=== PATIENT | male | born 1935 | race Two or more races ===

== ENCOUNTER → 2020-04-26 | Outpatient (CLI) | payer MEDICARE ==
[~2020-04-26] MED LIST: FINA5TAB4 PO; HYDR25TA6 PO; LISI-167 PO; LOVA10TA PO; SLEEP AID PO; TAMS0.4C2 PO
== END | disposition home or self-care (01) ==
LOC: CVU 07:30
PROVIDERS: ATTEND Family Medicine
DX: I73.9 Peripheral vascular disease, unspecified (principal); I10 Essential (primary) hypertension
CPT/HCPCS: 93922

== ENCOUNTER → 2020-09-10 | Outpatient (CLI) | payer MEDICARE | END | disposition home or self-care (01) | LOC: CFH 11:18 | PROVIDERS: ATTEND Family Medicine | DX: M51.36 Other intervertebral disc degeneration, lumbar region (principal); I70.0 Atherosclerosis of aorta; M25.862 Other specified joint disorders, left knee | CPT/HCPCS: 72100 ==

== ENCOUNTER → 2020-10-23 | Outpatient (CLI) | payer MEDICARE | END | disposition home or self-care (01) | LOC: CVU 07:33 | PROVIDERS: ATTEND Family Medicine | DX: I70.202 Unspecified atherosclerosis of native arteries of extremities, left leg (principal); I77.1 Stricture of artery | CPT/HCPCS: 93922; 93925 ==

== ENCOUNTER 2021-05-08 17:40 | Emergency (ER) | payer MEDICARE ==
[~2021-05-08] VITALS: Ht 160 cm; Wt 56.5 kg
--- NOTE | 2021-05-08 18:46 | NUR ---
PT SENT BY FOR ABNORMAL EKG. PT WENT TO CARE N/V/D AND HICCUPTS THAT STARTED LAST NIGHT. PT DENIES CP, ABD PAIN. PT CONNECTED TO ALL MONITORING. SON AND DAUGHTER AT BEDSIDE SUPERVISOR STENO POOL PT IN CROATIAN SPEAKING. PIV PLACED BY TASK RN, LABS DRAWN. AWAITING ORDERS.
--- NOTE | 2021-05-08 19:05 | NUR ---
REPORT GIVEN TO INOCENTE WINTERS. TRANSFER OF CARE AT THIS TIME.
[2021-05-08] MEDS ORDERED: MAALOX/HYOSCYAMINE/LIDOCAINE 45 ML BTL ONE (19:21)
[2021-05-08] MEDS ORDERED: ONDANSETRON 2MG/ML, 2ML ONE (19:21)
[2021-05-08 19:22] LABS: BASOPHILS % (AUTO) 0 % (0-1); EOSINOPHILS % (AUTO) 0 % (1-7); LYMPHOCYTES % (AUTO) 5 % (22-44); MEAN CORPUSCULAR HGB CONC 33.2 g/dL (33.2-36.2); MEAN PLATELET VOLUME 10.3 fL (7.4-10.4); MONOCYTES % (AUTO) 6 % (2-9); NEUTROPHILS % (AUTO) 89 % (42-75); PLATELET COUNT 158 x10^3/uL (130-400); RED BLOOD COUNT 5.11 x10^6/uL (4.38-5.82); RED CELL DISTRIBUTION WIDTH 13.5 % (9.4-14.8)
--- NOTE | 2021-05-08 19:29 | NUR ---
Pt states he has thrown up twice, but denies nausea or need for Zofran at this time.
[2021-05-08 19:30] LABS: ALANINE AMINOTRANSFERASE 24 U/L (12-78); ALBUMIN 3.5 g/dL (3.4-5.0); ANION GAP 5 mmol/L (5-15); CALCIUM 8.5 mg/dL (8.5-10.1); CHLORIDE 103 mmol/L (98-107); CREATININE 1.17 mg/dL (0.7-1.3)
[2021-05-08] MEDS ORDERED: SODIUM CHLORIDE FLUSH 10ML SYR IVF ONE (19:30)
[2021-05-08] MEDS ORDERED: MAALOX/HYOSCYAMINE/LIDOCAINE 45 ML BTL PO ONE (19:30)
[2021-05-08] MEDS ORDERED: SODIUM CHLORIDE 0.9% 1,000ML IVBOLUS ONE (19:30)
[2021-05-08] MEDS ORDERED: ONDANSETRON 2MG/ML, 2ML IVPush ONE (19:30)
[2021-05-08 19:35] LABS: ALKALINE PHOSPHATASE 68 U/L (45-117); BILIRUBIN,TOTAL 1.2 mg/dL (0.2-1.0); TOTAL PROTEIN 7.8 g/dL (6.4-8.2); TROPONIN I < 0.015 ng/mL (0.000-0.045)
[2021-05-08 21:01] VITALS: BP 156/81
== END 2021-05-08 21:04 | disposition home or self-care (01) ==
LOC: ED 20:55
DX: K21.00 Gastro-esophageal reflux disease with esophagitis, without bleeding (principal); R06.6 Hiccough; R07.89 Other chest pain; I45.10 Unspecified right bundle-branch block; I10 Essential (primary) hypertension; E78.00 Pure hypercholesterolemia, unspecified
CPT/HCPCS: 36415; 71045; 80053; 83690; 84484; 85025; 93005; 96360; 96361; 99285; J7030